=== PATIENT | male | born 1965 | race Caucasian/White ===

== ENCOUNTER 2017-03-21 20:08 | Emergency (ER) | payer MEDICAID ==
[~2017-03-21] VITALS: Ht 185.4 cm; Wt 80.0 kg
[2017-03-21 20:52] LABS: ASPARTATE AMINO TRANSFERASE 47 U/L (15-37); BLOOD UREA NITROGEN 7 mg/dL (7-18)
[2017-03-21 20:55] LABS: ACETAMINOPHEN < 2 mcg/mL (10-30)
[2017-03-21 23:16] VITALS: BP 107/68
== END 2017-03-21 23:54 | disposition home or self-care (01) ==
LOC: ED 23:33
DX: F10.120 Alcohol abuse with intoxication, uncomplicated (principal)
CPT/HCPCS: 36415; 80053; 80307; 80329; 85025; 99284; G0480

== ENCOUNTER 2019-08-10 14:00 | Emergency (ER) | payer SELFPAY ==
[~2019-08-10] VITALS: Ht 172.7 cm; Wt 75.0 kg
[2019-08-10 14:03] VITALS: BP 110/80
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
--- NOTE | 2019-08-10 15:00 | NUR ---
PT AGITATED AND AGGRESSIVE WITH STAFF. QUESTIONING WHY HIS LACERATION HASN'T BEEN REPAIRED YET. PT EDUCATED ON CT SCAN AND IMPLICATIONS, AND THE GENERAL WORK FLOW AND PLAN OF CARE HE SHOULD EXPECT. PT EXPRESSES UNDERSTANDING. CALL LIGHT IN REACH.
--- NOTE | 2019-08-10 15:41 | NUR ---
UPON ENTERING ROOM TO CLEAN LACERATION, PT BECAME AGGRESSIVE AND DEMANDING. DOES NOT REMEMBER EARLIER DISCUSSION ABOUT PLAN OF CARE. PT VERBALLY AND PHYSICALLY AGGRESSIVE WITH ERTECH, PLACED HANDS ON TECH IN A THREATENING MANNER. SECURITY CALLED TO BEDSIDE. PT DEMANDING HIS CELL PHONE, NOT NOTED IN HIS BELONGINGS. SCREAMING AT STAFF "CALL THE POLICE, CALL [employer]! SHOW THEM WHAT [facility] IS REALLY LIKE AND HOW THEY REALLY TAKE CARE OF PEOPLE!" ERP AT BEDSIDE TO ATTEMPT TO DIFFUSE SITUATION AND OFFER FURTHER CARE. PT AGGRESSIVE AND THREATENING WITH ERP WELL.
--- NOTE | 2019-08-10 15:52 | NUR ---
PT PROVIDED WITH DISCHARGE PAPERWORK AND PRESCRIPTIONS. CALLING POLICE FROM ROOM ON HIS PERSONAL CELL PHONE, AFTER HE FOUND IT IN HIS BELONGINGS. PT YELLS "THERE'S BLOOD ON IT!" REFERRING TO HIS PHONE. PT REMINDED THAT THERE IS BLOOD ON HIS HANDS WELL. POLICE IN BUILDING, AT BEDSIDE AT THIS TIME, ALONGSIDE SECURITY.
== END 2019-08-10 15:55 | disposition home or self-care (01) ==
LOC: ED 15:12
DX: S02.2XXA Fracture of nasal bones, initial encounter for closed fracture (principal); F17.200 Nicotine dependence, unspecified, uncomplicated; W01.0XXA Fall on same level from slipping, tripping and stumbling without subsequent striking against object, initial encounter; Y93.89 Activity, other specified; Y92.410 Unspecified street and highway as the place of occurrence of the external cause; Y99.8 Other external cause status
CPT/HCPCS: 70450; 70486; 93005; 99284

== ENCOUNTER 2020-10-20 18:09 | Emergency (ER) | payer MEDICAID ==
[~2020-10-20] VITALS: Ht 167.6 cm; Wt 77.3 kg
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
--- NOTE | 2020-10-20 20:57 | NUR ---
PT SLEEPING INTERMITTENTLY IN NAD, VSS.
[2020-10-20 21:29] VITALS: BP 101/65
--- NOTE | 2020-10-20 22:07 | NUR ---
PT AWAKE EATING SANDWICH, VSS. ABLE TO AMBULATE WITHOUT DIFFICULTY.
--- NOTE | 2020-10-20 22:29 | NUR ---
PT AMBULATED TO TX DESK ON STEADY GAIT.
== END 2020-10-20 22:31 | disposition home or self-care (01) ==
LOC: ED 19:00
DX: F10.220 Alcohol dependence with intoxication, uncomplicated (principal); M79.661 Pain in right lower leg; G89.29 Other chronic pain; Y90.0 Blood alcohol level of less than 20 mg/100 ml
CPT/HCPCS: 99283; 99284